=== PATIENT | female | born 1955 | race Caucasian/White ===

== ENCOUNTER 2017-02-22 16:24 | Inpatient (IN) ==
[2017-02-22 17:08] LABS: Mean Cell Volume 116.9 fL (80.0-100.0); Mean Corpuscular HGB Conc 33.4 g/dL (31.0-36.0); Platelet Count 400 K/mcL (140-440); RBC 3.52 M/mcL (4.00-5.20); Red Cell Distribution Width 16.6 % (11.5-14.5)
[2017-02-22 17:27] LABS: ALT/SGPT 16 U/l (0-40); Albumin 2.7 gm/dL (3.2-5.2); Alkaline Phosphatase 277 U/L (39-117); Blood Urea Nitrogen 5 mg/dl (8-23)
[2017-02-22 17:36] LABS: Anisocytosis 1+ (NONE SEEN); Band Neutrophils % 4 % (0-10); Eosinophils % (Manual) 1 % (0-7); Lymphocytes % 8 % (15-49); Macrocytosis 3+ (NONE SEEN); Monocytes % (Manual) 8 % (1-12); Platelet Estimate NORMAL (NORMAL); RBC Morphology ABNORM (NORMAL); Segmented Neutrophils % 79 % (38-78)
[2017-02-22] MEDS ORDERED: 0.9 % SODIUM CHLORIDE 3,000 ML IV ONE (17:37)
[2017-02-22] MEDS ORDERED: VANCOMYCIN 1,000 MG in 0.9 % SODIUM CHLORIDE 250 ML IV ONE (17:38)
[2017-02-22] MEDS ORDERED: PIPERACILLIN SODIUM/TAZOBACTAM 3.375 GM in DEXTROSE 5% IN WATER 50 ML IV SCH ×2 (17:45→18:15)
[2017-02-22] MEDS ORDERED: ONDANSETRON 4 MG/2 ML VIAL IV PRN (17:52)
[2017-02-22] MEDS ORDERED: NALOXONE HCL 0.4 MG/ML VIAL IV PRN (17:52)
[2017-02-22] MEDS: VANCOMYCIN 1,000 MG in 0.9 % SODIUM CHLORIDE 250 ML IV SCH (19:05)
[2017-02-22] MEDS: 0.9 % SODIUM CHLORIDE 1,000 ML IV SCH (19:15)
[2017-02-22] MEDS ORDERED: POTASSIUM CHLORIDE 40 MEQ in DEXTROSE 5% IN WATER 500 ML IV PRN (20:54)
[2017-02-22] MEDS ORDERED: MAGNESIUM SULFATE 2 GM/50 ML BAG IV PRN (20:54)
[2017-02-22] MEDS ORDERED: chlordiazePOXIDE 25 MG CAPSULE PO PRN (20:57)
[2017-02-22] MEDS ORDERED: POTASSIUM CHLORIDE 20 MEQ, MAGNESIUM SULFATE 16.24 MEQ, THIAMINE 100 MG, MVI, ADULT NO.... IV SCH (21:00)
--- NOTE | 2017-02-22 21:49 | Emergency Department Note ---
Skin/Abscess/FB HPI - General Chief complaint: Skin/Abscess/Foreign Body Stated complaint: Coccyx wound Time Seen by Provider: 02/22/17 17:24 Source: patient Mode of arrival: ambulatory Limitations: no limitations - History of Present Illness HPI Narrative: 61-year-old female went to see Dr. Zoraida Arora at [facility] and was found to have a sacral decubitus ulcer with eschar along with bilateral heel ulcers. Case was discussed with Dr. Conde who advised patient to go to the ER for further evaluation. She is febrile and tachycardic. she does feel sharp pain in her legs but otherwise denies sensation bilateral legs secondary to neuropathy from severe spinal stenosis. no urinary incontinence - Related Data Home Medications Medication Instructions Recorded Confirmed Acyclovir [Zovirax] 400 mg PO TID 02/28/16 02/22/17 Doxepin [Sinequan] 50 mg PO HS 02/28/16 02/22/17 Frovatriptan Succinate [Frova] 2.5 mg PO DAILYP PRN 02/28/16 02/22/17 Gabapentin [Neurontin] 800 mg PO TID 02/28/16 02/22/17 Levothyroxine [Synthroid] 137 mcg PO DAILY 02/28/16 02/22/17 Liothyronine [Cytomel] 5 mcg PO DAILY 02/28/16 02/22/17 Methocarbamol [Robaxin-750] 750 mg PO QIDP PRN 02/28/16 02/22/17 Omeprazole [Prilosec] 20 mg PO BIDAC 02/28/16 02/22/17 Potassium Chloride [Kdur] 10 meq PO QAMCC 02/28/16 02/22/17 Spironolactone [Aldactone] 25 mg PO DAILY 02/28/16 02/22/17 Sulfamethoxazole/Trimethoprim 1 tab PO DAILY 02/28/16 02/22/17 [Bactrim Ss] Verapamil [Calan Sr] 120 mg PO BID 02/28/16 02/22/17 busPIRone [Buspar] 10 mg PO BID 02/28/16 02/22/17 traMADol [Ultram] 50 mg PO TID 02/28/16 02/22/17 oxyCODONE/APAP [Percocet 5-325 mg] 1 tab PO Q6H 02/22/17 02/22/17 Allergies Allergy/AdvReac Type Severity Reaction Status Date / Time ciprofloxacin [From CIPRO] AdvReac Intermediate ABD UPSET Verified 02/22/17 19: 23 doxycycline AdvReac Mild Abdominal Verified 02/22/17 19:23 Pain nitrofurantoin AdvReac Mild Abdominal Verified 02/22/17 19:23 [From Macrobid] Pain Sulfa (Sulfonamide AdvReac Mild ABD UPSET Verified 02/22/17 19:23 Antibiotics) [SULFA (SULFONAMIDE ANTIBIOTICS)] Review of Systems All systems ED: reviewed and negative except as stated. Past Medical History - Past Medical History Attestation: Yes: The following information was validated with the patient. Medical history: Reports: hypertension, thyroid disease, other (lumbar spinal stenosis) Surgical history ED: Reports: cholecystectomy, orthopedic, other (back surgery, tibial fracture) - Social History smoking status: Current every day smoker Alcohol use: Reports: Recent (1-3 drinks per night) Physical Exam Normocephalic atraumatic injectable clear sclerae white and anicteric. No nasal discharge or congestion. Oropharynx is pink and moist. Neck is supple. No lymphadenopathy or thyromegaly. Heart is regular rate and rhythm no murmurs appreciated. Lungs are clear to auscultation bilaterally with slight end expiratory wheeze and occasional productive cough. Abdomen soft nontender nondistended. And her sacral prominence there is a 10 x 8 cm or so decubitus ulcer with black eschar present stage III. bilateral heels with stage II ulcers desquamating. Wound sites do not appear tender; seems to have lost significant sensation to lower extremities. Alert and oriented able to answer questions appropriately, no dysarthria. - General Limitations: no limitations Course Vital Signs Temperature 100.9 F H 02/22/17 16:26 Pulse Rate 102 H 02/22/17 16:26 Respiratory Rate 18 02/22/17 16:26 Blood Pressure 121/88 02/22/17 16:26 Pulse Oximetry (%) 92 02/22/17 16:26 Temperature 98.8 F 02/22/17 19:56 Pulse Rate 95 H 02/22/17 19:29 Respiratory Rate 20 02/22/17 19:56 Blood Pressure 103/72 02/22/17 19:56 Pulse Oximetry (%) 94 02/22/17 19:56 Skin/Abscess/Foreign Body - Lab Data Lab results reviewed: Yes I reviewed the patient's lab results. Result diagrams: 02/22/17 16:46 02/22/17 16:46 Lab Results 02/22/17 02/22/17 02/22/17 Range/Units 16:46 16:46 16:46 WBC 10.5 (4.5-11.0) K/mcL RBC 3.52 L (4.00-5.20) M/mcL Hgb 13.7 (12.0-15.0) g/dL Hct 41.1 (36.0-48.0) % MCV 116.9 H (80.0-100.0) fL MCH 39.0 H (26.0-34.0) pg MCHC 33.4 (31.0-36.0) g/dL RDW 16.6 H (11.5-14.5) % Plt Count 400 (140-440) K/mcL MPV 7.7 (7.4-10.4) fL Total Counted 100 Seg Neutrophils % 79 H (38-78) % Band Neutrophils % 4 (0-10) % Lymphocytes % 8 L (15-49) % Monocytes % (Manual) 8 (1-12) % Eosinophils % (Manual) 1 (0-7) % Platelet Estimate Normal (NORMAL) RBC Morphology Abnorm A (NORMAL) Polychromasia Few A (NONE SEEN) Anisocytosis 1+ A (NONE SEEN) Macrocytosis 3+ A (NONE SEEN) VBG Lactic Acid 1.1 (0.5-2.2) mmol/L Sodium 136 (133-145) mmol/L Potassium 3.8 (3.3-5.1) mmol/L Chloride 102 (96-108) mmol/L Carbon Dioxide 22 (22-30) mmol/L Anion Gap 12.0 (8-16) BUN 5 L (8-23) mg/dl Creatinine 0.6 (0.6-1.1) mg/dl GFR Calculation 97 Glucose 85 (70-105) mg/dL Calcium 8.2 L (8.6-10.4) mg/dl Total Bilirubin 0.5 (0.0-1.0) mg/dL AST 19 (0-37) U/l ALT 16 (0-40) U/l Alkaline Phosphatase 277 H (39-117) U/L Total Protein 5.5 L (5.9-8.4) gm/dL Albumin 2.7 L (3.2-5.2) gm/dL Globulin 2.8 (2.2-3.7) gm/dL Albumin/Globulin Ratio 1.0 (1.0-2.3) Disposition Clinical Impression: Sacral decubitus ulcer, stage III, Spinal stenosis, lumbar, Alcohol abuse Sepsis Qualifiers: Sepsis type: sepsis due to unspecified organism Qualified Code(s): A41.9 - Sepsis, unspecified organism Heel ulcer Qualifiers: Laterality: unspecified laterality Non-pressure ulcer stage: limited to breakdown of skin Qualified Code(s): L97.401 - Non-pressure chronic ulcer of unspecified heel and midfoot limited to breakdown of skin Neuropathy, lower extremity Qualifiers: Laterality: bilateral Qualified Code(s): G57.93 - Unspecified mononeuropathy of bilateral lower limbs Summary: Initially worked up for infected bedsore at sacral prominence- found to have fever hypotension and tachycardia. Concern for sepsis so cultures done and antibiotics started; fluid resuscitation started. Discussed with Dr. Conde, inventory specialist, and Dr. Fulton the hospitalist. Dr. Conde will consult for eschared debridement and Dr. Fulton will admit and care for sepsis. We'll need CIWA protocol secondary to alcohol usage Disposition: Xfer As Inpt ([facility]) Condition: Undetermined
[2017-02-22] MEDS: DOXEPIN 25 MG CAPSULE PO SCH (22:03)
[2017-02-22] MEDS: GABAPENTIN 400 MG CAPSULE PO SCH (22:04)
[2017-02-22] MEDS: busPIRone 10 MG TABLET PO SCH (22:04)
[2017-02-22] MEDS: LEVOTHYROXINE 25 MCG TABLET PO SCH (22:04)
[2017-02-22] MEDS: METHOCARBAMOL 750 MG TABLET PO PRN (22:04)
[2017-02-22] MEDS: LEVOTHYROXINE SODIUM 112 MCG TABLET PO SCH (22:04)
[2017-02-22] MEDS: oxyCODONE/APAP 5/325MG TABLET PO PRN (22:05)
--- NOTE | 2017-02-22 22:06 | History and Physical Report ---
DATE OF ADMISSION: 02/22/2017 PRIMARY CARE PHYSICIAN: Mario Quintanilla MD DATE OF ADMISSION: 02/22/2017 CONSULTING PHYSICIAN: Yobani Conde MD HISTORY OF CHIEF COMPLAINT: Ai is a 61-year-old with known history of spinal stenosis with paraparesis who developed bilateral heel ulceration and sacral decubitus that has progressed over the last couple of weeks into eschar. The patient was evaluated at primary care physician's office and subsequently directed to [facility] ER. Initial workup was significant for bilateral heel cellulitis with tachycardia and early sepsis along with cellulitis with discharge around the ulcer. Hospitalist Service was consulted. At the time of examination, the patient is alert and oriented. She is able to provide most of the history. Her symptoms have progressed over the last couple of weeks. She endorses weakness, fever, fatigue, lethargy. At baseline she is unable to ambulate. She lives in a trailer with her . She needs basically help with her activities of daily living. She has had progressive spinal stenosis for which she has loss of sensation in bilateral lower extremities along with motor function. She, however, denies incontinence, diarrhea, headache, photophobia, chest pain, shortness of breath, nausea, vomiting. Dr. Conde was consulted by ER physician and will consult for wound care. PAST MEDICAL HISTORY: 1. Hypertension. 2. 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 3. Chronic lower extremity wounds. 4. Hypothyroidism. 5. Asperger disease. 6. Anxiety. 7. Chronic pain. 8. Peripheral neuropathy. 9. Muscle spasm. 10. Hypothyroidism. 11. Degenerative joint disease. 12. History of migraine. SOCIAL HISTORY: The patient lives with her . 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 She has 1 daughter who lives in [place]. Denies history of IV drug use. Smokes a pack and half and consistently drinks 2-3 drinks of vodka which she has currently changed to champagne. She is a FULL CODE STATUS. Primary care physician: Mario Quintanilla MD FAMILY HISTORY: Significant for lung cancer in mother; grandfather and mother, DM type 2; aneurysmal brain hemorrhage in father. PHYSICAL EXAMINATION: GENERAL EXAMINATION: She is alert, oriented. Denies any active distress. BMI 19. Height 5 feet 8 inches. VITAL SIGNS: Blood pressure 90/77, respiratory rate 16, temperature 100.9, pulse 102, saturations 92 percent on room air. HEENT: Pupils symmetric. Oral cavity dry. No ear or nose discharge. Head: Normocephalic, atraumatic. NECK: No lymphadenopathy. CHEST: S1, S2 regular rhythm. ESM grade 1. Diminished breath sounds at bases. ABDOMEN: Soft. LOWER EXTREMITY EXAMINATION: Minimal sensation along with motor strength. Restricted dorsi- and plantarflexion. Bilateral heel ulceration along with surrounding erythema and induration and eschar. Otherwise, no joint swelling. Sacral decubitus 4 x 4 centimeter eschar. SKIN: No suspicious lesions other than as described above. PSYCHIATRIC: Alert, cooperative. No anxiety, agitation. NEURO EXAMINATION: Moving bilateral upper extremities. Lower extremities bilateral 3+ strength. Absent sensation to crude touch. LABS AND IMAGING: White count 10.5, hemoglobin 13.7, neutrophils 79 percent. Lactic acid 1.1. Sodium 133, potassium 3.8, creatinine 0.6, BUN 5. LFTs unremarkable except elevated __ at 277, total protein 5.5. ASSESSMENT AND PLAN: A 61-year-old admitted with bilateral lower extremity cellulitis. 1. Lower extremity cellulitis /sacral decubitus. Will be managed by Dr. Conde. Broad antibiotic coverage with vancomycin, Zosyn; deescalate based on culture sensitivity results. 2. Sepsis, secondary to above with tachycardia, fever. Blood cultures obtained. Broad antibiotic coverage was instituted. Cultures are pending. Continue crystalloids and hemodynamic monitoring. 3. Other prior medical issues including history of neuropathy. Continue gabapentin. 4. Chronic pain, on oxycodone, tramadol. 5. Anxiety, on BuSpar/doxepin. 6. Hypothyroidism, on thyroxine. 7. Gastroesophageal reflux disease. On proton pump inhibitors. 8. History of spinal stenosis. Continue with physical therapy. PLAN FOR TODAY: 1. Admit to inpatient telemetry in light of severe sepsis, tachycardia, hypotension. 2. Pressors if indicated. Otherwise continue severe sepsis management per guidelines. 3. Preexisting medical condition management above. 4. Wound care consult. 5. Decubitus care/offloading. AA:harsh Job ID: [id number] Doc ID: [id number] Silvestre SAUNDERS
[2017-02-22] MEDS: NICOTINE 21 MG PATCH TOPICAL SCH (22:09)
[2017-02-22] MEDS: busPIRone 5 MG TABLET PO SCH (22:09)
[2017-02-22] MEDS ORDERED: MAGNESIUM SULFATE 8.12 MEQ/2 ML VIAL ONE (22:29)
[2017-02-22] MEDS ORDERED: POTASSIUM CHLORIDE 20 MEQ/10 ML VIAL IV ONE (22:29)
[2017-02-22] MEDS: VERAPAMIL 120 MG TAB.XL.24H PO SCH (22:52)
[2017-02-22] MEDS: traMADol 50 MG TABLET PO SCH (22:52)
[2017-02-23] MEDS: PIPERACILLIN SODIUM/TAZOBACTAM 3.375 GM in DEXTROSE 5% IN WATER 50 ML IV SCH ×4 (01:11→18:57)
[2017-02-23] MEDS ORDERED: PIPERACILLIN SODIUM/TAZOBACTAM 3.375 GM VIAL IV ONE ×2 (01:12→02:48)
[2017-02-23] MEDS: oxyCODONE/APAP 5/325MG TABLET PO PRN ×5 (02:47→21:14)
[2017-02-23] MEDS: GABAPENTIN 400 MG CAPSULE PO SCH ×3 (05:21→21:13)
[2017-02-23] MEDS: 0.9 % SODIUM CHLORIDE 1,000 ML IV SCH ×2 (06:03→18:41)
[2017-02-23 06:23] LABS: Mean Corpuscular Hemoglobin 38.9 pg (26.0-34.0); Platelet Count 305 K/mcL (140-440); RBC 2.88 M/mcL (4.00-5.20); Red Cell Distribution Width 17.5 % (11.5-14.5)
[2017-02-23] MEDS: METHOCARBAMOL 750 MG TABLET PO PRN ×2 (07:13→21:13)
[2017-02-23 07:18] LABS: ALT/SGPT 13 U/l (0-40); Albumin/Globulin Ratio 0.9 (1.0-2.3); Alkaline Phosphatase 212 U/L (39-117); Bilirubin,Direct < 0.2 mg/dL (0.0-0.3); Blood Urea Nitrogen 4 mg/dl (8-23); Gamma Glutamyl Transpeptidase 73 U/L (5-36); Magnesium 1.8 mg/dL (1.6-2.5); Uric Acid 4.1 mg/dL (2.5-8.0)
[2017-02-23] MEDS ORDERED: OMEPRAZOLE 20 MG CAPSULE PO SCH ×2 (07:30)
[2017-02-23] MEDS ORDERED: POTASSIUM CHLORIDE 10 MEQ TABLET PO SCH (08:00)
[2017-02-23 08:07] LABS: Anisocytosis 1+ (NONE SEEN); Band Neutrophils % 3 % (0-10); Eosinophils % (Manual) 3 % (0-7); Lymphocytes % 22 % (15-49); Macrocytosis 3+ (NONE SEEN); Monocytes % (Manual) 2 % (1-12); Platelet Estimate NORMAL (NORMAL); RBC Morphology ABNORM (NORMAL); Segmented Neutrophils % 70 % (38-78)
[2017-02-23] MEDS ORDERED: SPIRONOLACTONE 25 MG TABLET PO SCH (09:00)
[2017-02-23] MEDS: NICOTINE 21 MG PATCH TOPICAL SCH (09:51)
[2017-02-23] MEDS: busPIRone 5 MG TABLET PO SCH ×2 (09:51→21:12)
[2017-02-23] MEDS: traMADol 50 MG TABLET PO SCH ×3 (09:51→21:13)
[2017-02-23] MEDS: SPIRONOLACTONE 25 MG TABLET PO SCH (09:52)
[2017-02-23] MEDS: VERAPAMIL 120 MG TAB.XL.24H PO SCH ×2 (09:52→21:12)
[2017-02-23] MEDS: POTASSIUM CHLORIDE 10 MEQ TABLET PO SCH (09:52)
[2017-02-23] MEDS: PANTOPRAZOLE 40 MG TABLET PO SCH ×2 (09:53→18:36)
[2017-02-23] MEDS: busPIRone 10 MG TABLET PO SCH (09:53)
--- NOTE | 2017-02-23 09:53 | Internal Med Progress Note ---
Medical - PN: Subj Patient information: Note initiated : 02/23/17 at 9:50 am Service Date, if different from initiated Date: [] Patient: Ai Baig 61 y/o F admitted on 02/22/17 for Coccyx wound. Chief Complaint: [] Interval history: 02/23- 61-year-old with history of spinal stenosis and bilateral paraparesis and sensory loss admitted with with sacral and bilateral heel decubitus ulcer along with hypotension in early sepsis. Started on broad antibiotic coverage. Wound care consulted. admitted to telemetry. 02/24 patient doing well. Stable hemodynamics and labs. Wound care consulted. Wound care ongoing per wound care physician Dr. Conde. no overnight fever chills nausea vomiting or concerns per staff. - Constitutional Vitals: Vital Signs Temp Pulse Resp BP Pulse Ox 97.8 F 90 16 104/70 97 02/23/17 04:00 02/23/17 07:59 02/23/17 07:59 02/23/17 04:00 02/23/17 04:00 Period Temp Pulse Resp BP Sys/Gonzalez Pulse Ox Last 24 Hr 97.6 F-98.8 F 90-95 16-22 82-114/61-83 92-97 Intake and Output 02/22/17 02/23/17 02/23/17 21:59 05:59 13:59 Intake Total 250 / 2300 1795 / 1795 1000 / 1000 Output Total 100 / 100 1050 / 1050 Balance 150 / 2200 745 / 745 1000 / 1000 Weight 130 lb 14.4 oz Intake & Output: Intake & Output 02/22/17 02/23/17 02/23/17 21:59 05:59 13:59 Intake Total 250 / 2300 1795 / 1795 1000 / 1000 Output Total 100 / 100 1050 / 1050 Balance 150 / 2200 745 / 745 1000 / 1000 Weight 130 lb 14.4 oz Intake: IV 250 / 250 1075 / 1075 1000 / 1000 Sodium Chloride 0.9% 1, 1000 / 1000 000 ml @ 84 mls/hr IV . [id number] [facility] Rx#:[id number] Zosyn 3.375 gm In 50 / 50 Dextrose 5% in Water 50 ml @ 100 mls/hr IV Q6H [facility] Rx#:[id number] Potassium Chloride 20 Meq 1025 / 1025 Magnesium Sulfate 16.24 Meq Vitamin B1 100 mg Infuvite Adult 10 ml In Sodium Chloride 0.9% 1, 000 ml @ As Directed IV . Q0M [facility] Rx#:[id number] Vancomycin 1,000 mg In 250 / 250 Sodium Chloride 0.9% 250 ml @ 250 mls/hr IV ONCE ONE Rx#:[id number] Oral 720 / 720 Output: Void Amount 100 / 100 1050 / 1050 General appearance: cooperative, no acute distress Exam: bilateral heel pressure ulceration with cellulitis right more pronounced than left with an eschar Sacral decubitus eschar 4 x 4 centimeter with surrounding erythema No anxiety or agitation No telemetry events-tachycardia resolved Nonlabored breathing Medical - PN: Obj Da - Labs CBC & Chem 7: 02/23/17 04:29 02/23/17 04:29 Labs: Abnormal Lab Results 02/23/17 02/23/17 04:29 04:29 RBC 2.88 L Hgb 11.2 L Hct 33.9 L MCV 118.0 H MCH 38.9 H RDW 17.5 H RBC Morphology Abnorm A Anisocytosis 1+ A Macrocytosis 3+ A Chloride 110 H Carbon Dioxide 18 L BUN 4 L Creatinine 0.4 L Calcium 6.9 L GGT 73 H Alkaline Phosphatase 212 H Lactate Dehydrogenase 360 H Total Protein 4.3 L Albumin 2.0 L Albumin/Globulin Ratio 0.9 L Meds: Medications Buspirone HCl (Buspar) 10 mg PO BID [facility] Last Admin: 02/22/17 22:04 Dose: 10 mg Buspirone HCl (Buspar) 10 mg PO BID [facility] Last Admin: 02/22/17 22:09 Dose: 10 mg Chlordiazepoxide HCl (Librium) 25 mg PO Q6HP PRN PRN Reason: Alcohol Withdrawal Doxepin HCl (Sinequan) 50 mg PO HS [facility] Last Admin: 02/22/17 22:03 Dose: 50 mg Gabapentin (Neurontin) 800 mg PO Q8 [facility] Last Admin: 02/23/17 05:21 Dose: 800 mg Sodium Chloride (Sodium Chloride 0.9%) 1,000 mls @ 84 mls/hr IV .[id number] [facility] Stop: 02/24/17 05:42 Last Admin: 02/23/17 06:03 Dose: 84 mls/hr Vancomycin HCl 1,000 mg/ (Sodium Chloride) 250 mls @ 250 mls/hr IV Q12H [facility] Last Admin: 02/22/17 19:05 Dose: Not Given Piperacillin Sod/Tazobactam (Sod 3.375 gm/ Dextrose) 50 mls @ 100 mls/hr IV Q6H [facility] Last Admin: 02/23/17 05:12 Dose: Not Given Potassium Chloride 40 meq/ (Dextrose) 520 mls @ 130 mls/hr IV UD PRN PRN Reason: K+ = or < 3.5 Magnesium Sulfate (Magnesium Sulfate) 2 gm in 50 mls @ 50 mls/hr IV UD PRN PRN Reason: Mag < or = 1.7 Potassium Chloride 20 meq/Magnesium Sulfate 16.24 meq/Thiamine HCl 100 mg/ Multivitamins/Minerals 10 ml/Sodium Chloride 1,025 mls @ 0 mls/hr IV .Q0M [facility] PRN Reason: As Directed Last Infusion: 02/23/17 02:59 Dose: Infused Levothyroxine Sodium (Synthroid) 25 mcg PO HS [facility] Last Admin: 02/22/17 22:04 Dose: 25 mcg Levothyroxine Sodium (Synthroid) 112 mcg PO HS [facility] Last Admin: 02/22/17 22:04 Dose: 112 mcg Liothyronine Sodium (Cytomel) 5 mcg PO DAILY [facility] Methocarbamol (Robaxin) 750 mg PO Q6HP PRN PRN Reason: Muscle Spasm Last Admin: 02/23/17 07:13 Dose: 750 mg Naloxone HCl (Narcan) 0.1 mg IV Q2MIN PRN PRN Reason: Opiate Reversal Nicotine (Nicoderm) 21 mg TOPICAL DAILY@1000 [facility] Last Admin: 02/22/17 22:09 Dose: Not Given Omeprazole (Prilosec) 20 mg PO ACB [facility] Ondansetron HCl (Zofran) 4 mg IV Q4HP PRN PRN Reason: Nausea And Vomiting Oxycodone/Acetaminophen (Percocet 5-325 Mg) 1 tab PO Q4HP PRN PRN Reason: Pain Last Admin: 02/23/17 07:12 Dose: 1 tab Pantoprazole Sodium (Protonix) 40 mg PO BIDAC [facility] (Frovatriptan Succinate [Frova] 2. 5 Mg 1 dose PO PRN PRN PRN Reason: Migraine Headache Potassium Chloride (Kdur) 10 meq PO QAMCC [facility] Spironolactone (Aldactone) 25 mg PO DAILY [facility] Tramadol HCl (Ultram) 50 mg PO TID [facility] Last Admin: 02/22/17 22:52 Dose: Not Given Verapamil HCl (Calan Sr) 120 mg PO BID [facility] Last Admin: 02/22/17 22:52 Dose: Not Given Medical - PN: A/P - Time Spent With Patient Total time spent is greater than 50% in coordination of care (as documented) at patient's floor/unit and/or counseling patient: 25 - 35 minutes (1) Sacral decubitus ulcer Status: Acute Assessment and plan: * infected sacral decubitus ulcer/bilateral heel pressures ulcers/cellulitis-on broad antibiotic coverage. Continue wound care. * Anxiety disorder and BuSpar * history of alcoholism no significant withdrawals. Continue chlordiazepoxide / oral alcohol as needed. * Hypertension on verapamil * Neuropathy gabapentin * chronic pain on oxycodone * hypothyroidism on thyroxine * DNR Plan * Continue wound management per wound physician * broad antibiotic coverage * Oral alcohol/monitor for withdrawal * pre-existing medical condition management as above Current Visit: Yes Medical - PN: Qual - VTE Deep Vein Thrombosis/Pulmonary Embolism Present on Admission: No
[2017-02-23] MEDS: LIOTHYRONINE 5 MCG TABLET PO SCH (10:09)
[2017-02-23] MEDS: COLLAGENASE TOP OINT TUBE 30GM TOPICAL SCH (10:41)
[2017-02-23 12:08] LABS: Prealbumin 9.9 mg/dl (20-40)
[2017-02-23 12:35] LABS: Estimated Average Glucose(eAG) 74 mg/dL; Hemoglobin A1C 4.2 % HGB (4.0-6.0)
[2017-02-23] MEDS: VANCOMYCIN 1,000 MG in 0.9 % SODIUM CHLORIDE 250 ML IV SCH ×2 (12:38→22:33)
[2017-02-23] MEDS ORDERED: SUMAtriptan SUCCINATE 50 MG TABLET PO PRN ×2 (16:30→16:38)
--- NOTE | 2017-02-23 17:50 | General Surgery Consult Note ---
History of Present Illness Patient information: Note initiated : 02/23/17 at 5:36 pm Service Date, if different from initiated Date: [] Patient: Ai Baig 61 y/o F admitted on 02/22/17 for Coccyx Wound/Bilateral Lower Extremity Cellulitis. Chief Complaint: [] Consult date: 02/23/17 (Wound Care Consult) Requesting physician: Silvestre Bond History of present illness: 61/F Admitted via ER with early sepsis syndrome. CSSSI / UTI. Noted to have Sacral and bilateral posterior heel NON STAGEABLE pressure ulcers with periwound erythema BUT without surrounding cellulitis. Patient has Spinal Stenosis and awaits Neurological Appointment with Dr. Tuttle for recommendations and referral for further management. Patient has long standing history of ETOH use, Smoking, hypothyroidism, chronic pain syndrome and sensory neuropathy of both LE and anxiety Reportedly she sits on sofa for prolonged periods of time in front of TV and smokes cigarettes. Medications and Allergies Home Medications Medication Instructions Recorded Confirmed Type Acyclovir [Zovirax] 400 mg PO TID 02/28/16 02/22/17 History Doxepin [Sinequan] 50 mg PO HS 02/28/16 02/22/17 History Gabapentin [Neurontin] 800 mg PO TID 02/28/16 02/22/17 History Levothyroxine [Synthroid] 137 mcg PO DAILY 02/28/16 02/22/17 History Liothyronine [Cytomel] 5 mcg PO DAILY 02/28/16 02/22/17 History Methocarbamol [Robaxin-750] 750 mg PO QIDP PRN 02/28/16 02/22/17 History Omeprazole [Prilosec] 20 mg PO BIDAC 02/28/16 02/22/17 History Potassium Chloride [Kdur] 10 meq PO QAMCC 02/28/16 02/22/17 History Spironolactone [Aldactone] 25 mg PO DAILY 02/28/16 02/22/17 History Sulfamethoxazole/Trimethoprim 1 tab PO DAILY 02/28/16 02/22/17 History [Bactrim Ss] Verapamil [Calan Sr] 120 mg PO BID 02/28/16 02/22/17 History busPIRone [Buspar] 10 mg PO BID 02/28/16 02/22/17 History traMADol [Ultram] 50 mg PO TID 02/28/16 02/22/17 History oxyCODONE/APAP [Percocet 5-325 mg] 1 tab PO Q6H 02/22/17 02/22/17 History SUMAtriptan SUCCINATE 100 mg PO PRN 02/23/17 History Vitamin B1 100 mg PO DAILY 02/23/17 02/23/17 History Allergies Allergy/AdvReac Type Severity Reaction Status Date / Time ciprofloxacin [From CIPRO] AdvReac Intermediate ABD UPSET Verified 02/22/17 19: 23 doxycycline AdvReac Mild Abdominal Verified 02/22/17 19:23 Pain nitrofurantoin AdvReac Mild Abdominal Verified 02/22/17 19:23 [From Macrobid] Pain Sulfa (Sulfonamide AdvReac Mild ABD UPSET Verified 02/22/17 19:23 Antibiotics) [SULFA (SULFONAMIDE ANTIBIOTICS)] Exam Temp Pulse Resp BP Pulse Ox 98.6 F 96 H 18 114/77 2 L 02/23/17 16:00 02/23/17 12:09 02/23/17 16:00 02/23/17 16:00 02/23/17 16:00 - General physical appearance well developed, no distress, chronically ill - Eyes PERRL, normal ocular movement - ENT normal pinna, normal nares, normal mucosa, no hearing loss, no congestion - Head Head exam IM: Present: atraumatic, normal inspection, normocephalic - Neck no masses, no bruits, trachea midline, no venous distension - Cardiovascular Cardiovascular exam IM: Present: normal rate and rhythm - Respiratory normal expansion, clear to auscultation - Abdomen Abdomen: Present: soft, non tender, bowel sounds - Integumentary Present: other (NON STAGEABLE pressure ulcers / Dry adherent blcak eschar with periwound erythema. NO fluctuance and no odor . Dry wounds over pressure areas sacral and bilateral posterior heels. ) - Musculoskeletal Present: normal posture, other - Psychiatric Present: oriented to time, oriented to person, oriented to place, speech is normal, memory intact Results - Labs 02/23/17 04:29 02/23/17 04:29 Abnormal lab results 02/23/17 02/23/17 02/23/17 Range/Units 04:29 04:29 10:08 RBC 2.88 L (4.00-5.20) M/mcL Hgb 11.2 L (12.0-15.0) g/dL Hct 33.9 L (36.0-48.0) % MCV 118.0 H (80.0-100.0) fL MCH 38.9 H (26.0-34.0) pg RDW 17.5 H (11.5-14.5) % RBC Morphology Abnorm A (NORMAL) Anisocytosis 1+ A (NONE SEEN) Macrocytosis 3+ A (NONE SEEN) Chloride 110 H (96-108) mmol/L Carbon Dioxide 18 L (22-30) mmol/L BUN 4 L (8-23) mg/dl Creatinine 0.4 L (0.6-1.1) mg/dl Calcium 6.9 L (8.6-10.4) mg/dl GGT 73 H (5-36) U/L Alkaline Phosphatase 212 H (39-117) U/L Lactate Dehydrogenase 360 H (94-250) U/L Total Protein 4.3 L (5.9-8.4) gm/dL Albumin 2.0 L (3.2-5.2) gm/dL Albumin/Globulin Ratio 0.9 L (1.0-2.3) Prealbumin 9.9 L (20-40) mg/dl Diabetes panel 02/23/17 02/23/17 Range/Units 04:29 10:08 Sodium 140 (133-145) mmol/L Potassium 3.7 (3.3-5.1) mmol/L Chloride 110 H (96-108) mmol/L Carbon Dioxide 18 L (22-30) mmol/L BUN 4 L (8-23) mg/dl Creatinine 0.4 L (0.6-1.1) mg/dl Glucose 74 (70-105) mg/dL Hemoglobin A1c 4.2 (4.0-6.0) % HGB Calcium 6.9 L (8.6-10.4) mg/dl AST 18 (0-37) U/l ALT 13 (0-40) U/l Alkaline Phosphatase 212 H (39-117) U/L Total Protein 4.3 L (5.9-8.4) gm/dL Albumin 2.0 L (3.2-5.2) gm/dL Triglycerides 106 (<150) mg/dl Thyroid panel 02/23/17 Range/Units 10:08 TSH 0.92 (0.27-5.01) uIU/ml Calcium panel 02/23/17 Range/Units 04:29 Calcium 6.9 L (8.6-10.4) mg/dl Phosphorus 2.7 (2.7-4.5) mg/dL Albumin 2.0 L (3.2-5.2) gm/dL Pituitary panel 02/23/17 02/23/17 Range/Units 04:29 10:08 Sodium 140 (133-145) mmol/L Potassium 3.7 (3.3-5.1) mmol/L Chloride 110 H (96-108) mmol/L Carbon Dioxide 18 L (22-30) mmol/L BUN 4 L (8-23) mg/dl Creatinine 0.4 L (0.6-1.1) mg/dl Glucose 74 (70-105) mg/dL Calcium 6.9 L (8.6-10.4) mg/dl TSH 0.92 (0.27-5.01) uIU/ml Adrenal panel 02/23/17 Range/Units 04:29 Sodium 140 (133-145) mmol/L Potassium 3.7 (3.3-5.1) mmol/L Chloride 110 H (96-108) mmol/L Carbon Dioxide 18 L (22-30) mmol/L BUN 4 L (8-23) mg/dl Creatinine 0.4 L (0.6-1.1) mg/dl Glucose 74 (70-105) mg/dL Calcium 6.9 L (8.6-10.4) mg/dl Total Bilirubin 0.3 (0.0-1.0) mg/dL AST 18 (0-37) U/l ALT 13 (0-40) U/l Alkaline Phosphatase 212 H (39-117) U/L Total Protein 4.3 L (5.9-8.4) gm/dL Albumin 2.0 L (3.2-5.2) gm/dL All other labs normal. Assessment and Plan (1) Heel ulcer Conservative management. SANTYL / Protective foam dressing and off loading Status: Chronic Priority: Medium Qualifiers: Laterality: unspecified laterality Non-pressure ulcer stage: unspecified non-pressure ulcer stage Qualified Code(s): L97.409 - Non-pressure chronic ulcer of unspecified heel and midfoot with unspecified severity (2) Sacral decubitus ulcer Santyl / Protective foam bordered dressing and off laoding. Change position q 2 hrly Status: Chronic Priority: Medium Qualifiers: Pressure ulcer stage: unstageable Qualified Code(s): L89.150 - Pressure ulcer of sacral region, unstageable (3) Spinal stenosis, lumbar Status: Chronic Priority: Medium
[2017-02-23] MEDS: LEVOTHYROXINE 25 MCG TABLET PO SCH (21:13)
[2017-02-23] MEDS: LEVOTHYROXINE SODIUM 112 MCG TABLET PO SCH (21:13)
[2017-02-23] MEDS: DOXEPIN 25 MG CAPSULE PO SCH (21:13)
[2017-02-24] MEDS: PIPERACILLIN SODIUM/TAZOBACTAM 3.375 GM in DEXTROSE 5% IN WATER 50 ML IV SCH ×5 (00:12→23:44)
[2017-02-24] MEDS: oxyCODONE/APAP 5/325MG TABLET PO PRN ×3 (01:17→19:17)
[2017-02-24] MEDS: METHOCARBAMOL 750 MG TABLET PO PRN ×3 (02:57→19:19)
[2017-02-24 05:27] LABS: Mean Cell Volume 118.3 fL (80.0-100.0); Mean Corpuscular HGB Conc 33.4 g/dL (31.0-36.0); Mean Corpuscular Hemoglobin 39.5 pg (26.0-34.0); Platelet Count 300 K/mcL (140-440); RBC 2.74 M/mcL (4.00-5.20); Red Cell Distribution Width 17.8 % (11.5-14.5)
[2017-02-24 06:10] LABS: ALT/SGPT 13 U/l (0-40); Alkaline Phosphatase 198 U/L (39-117); Bilirubin,Direct < 0.2 mg/dL (0.0-0.3); Blood Urea Nitrogen 2 mg/dl (8-23); Gamma Glutamyl Transpeptidase 71 U/L (5-36); Magnesium 1.5 mg/dL (1.6-2.5); Uric Acid 2.9 mg/dL (2.5-8.0)
--- NOTE | 2017-02-24 07:13 | XRay Report ---
CLINICAL INFORMATION: Dyspnea. Follow-up. TECHNIQUE: AP portable chest x-ray COMPARISON: 12/11/2016 and 03/21/2014 FINDINGS: Lungs are negative. No pulmonary parenchymal infiltrate or mass. Heart size and vascularity are normal. Yisel and mediastinum are negative. No pleural fluid. IMPRESSION: Negative AP chest x-ray Interpreted and Authenticated by: Reed Fitzgerald 02/24/17
[2017-02-24 08:01] LABS: Anisocytosis 1+ (NONE SEEN); Band Neutrophils % 3 % (0-10); Eosinophils % (Manual) 4 % (0-7); Lymphocytes % 22 % (15-49); Macrocytosis 3+ (NONE SEEN); Monocytes % (Manual) 3 % (1-12); Platelet Estimate NORMAL (NORMAL); RBC Morphology ABNORM (NORMAL); Segmented Neutrophils % 68 % (38-78)
[2017-02-24] MEDS: GABAPENTIN 400 MG CAPSULE PO SCH ×3 (08:57→21:10)
[2017-02-24] MEDS: traMADol 50 MG TABLET PO SCH ×3 (08:58→20:14)
[2017-02-24] MEDS: busPIRone 5 MG TABLET PO SCH ×2 (08:58→20:15)
[2017-02-24] MEDS: VERAPAMIL 120 MG TAB.XL.24H PO SCH ×2 (08:59→20:15)
[2017-02-24] MEDS: SPIRONOLACTONE 25 MG TABLET PO SCH (08:59)
[2017-02-24] MEDS: PANTOPRAZOLE 40 MG TABLET PO SCH ×2 (08:59→16:55)
[2017-02-24] MEDS: POTASSIUM CHLORIDE 10 MEQ TABLET PO SCH (08:59)
[2017-02-24] MEDS: LIOTHYRONINE 5 MCG TABLET PO SCH (09:00)
[2017-02-24] MEDS ORDERED: THIAMINE 100 MG TABLET PO SCH (09:00)
[2017-02-24] MEDS: COLLAGENASE TOP OINT TUBE 30GM TOPICAL SCH (09:01)
--- NOTE | 2017-02-24 09:44 | Internal Med Progress Note ---
Medical - PN: Subj Patient information: Note initiated : 02/24/17 at 9:42 am Service Date, if different from initiated Date: [] Patient: Ai Baig 61 y/o F admitted on 02/22/17 for Coccyx Wound/Bilateral Lower Extremity Cellulitis. Chief Complaint: [] Interval history: 02/22- 61-year-old with history of spinal stenosis and bilateral paraparesis and sensory loss admitted with with sacral and bilateral heel decubitus ulcer along with hypotension in early sepsis. Started on broad antibiotic coverage. Wound care consulted. admitted to telemetry. 02/23 patient doing well. Stable hemodynamics and labs. Wound care consulted. Wound care ongoing per wound care physician Dr. Conde. no overnight fever chills nausea vomiting or concerns per staff. 02/24- patient doing well. No overnight events. No concerns per staff. Wound care ongoing. On antibiotic coverage. Sepsis resolved. systolics at goal. Patient alert oriented and without distress. No fever chills nausea vomiting. prealbumin 9.9. Personal Injury Specialist consult - Constitutional Vitals: Vital Signs Temp Pulse Resp BP Pulse Ox 98.7 F 86 22 113/84 96 02/24/17 08:00 02/24/17 07:41 02/24/17 04:00 02/24/17 07:41 02/24/17 07:41 Period Temp Pulse Resp BP Sys/Gonzalez Pulse Ox Last 24 Hr 97.5 F-98.7 F 86-96 18-24 85-115/62-85 2-98 Intake and Output 02/23/17 02/24/17 02/24/17 21:59 05:59 13:59 Intake Total 1580 / 1580 780 / 780 1050 / 1050 Output Total 1974 950 / 950 Balance -395 / -395 -170 / -170 1050 / 1050 Weight 136 lb Intake & Output: Intake & Output 02/23/17 02/24/17 02/24/17 21:59 05:59 13:59 Intake Total 1580 / 1580 780 / 780 1050 / 1050 Output Total 1974 950 / 950 Balance -395 / -395 -170 / -170 1050 / 1050 Weight 136 lb Intake: IV 1100 / 1100 300 / 300 1050 / 1050 Sodium Chloride 0.9% 1, 1000 / 1000 1000 / 1000 000 ml @ 84 mls/hr IV . [id number] [facility] Rx#:[id number] Zosyn 3.375 gm In 100 / 100 50 / 50 50 / 50 Dextrose 5% in Water 50 ml @ 100 mls/hr IV Q6H [facility] Rx#:[id number] Vancomycin 1,000 mg In 250 / 250 Sodium Chloride 0.9% 250 ml @ 250 mls/hr IV Q12H [facility] Rx#:[id number] Oral 480 / 480 480 / 480 Output: Void Amount 1974 950 / 950 General appearance: cooperative, no acute distress Exam: lert oriented nonlabored breathing Sacral decubitus ulcer/Bilateral heel pressure ulcer/eschar No anxiety no telemetry events Medical - PN: Obj Da - Labs CBC & Chem 7: 02/24/17 04:05 02/24/17 04:05 Labs: Abnormal Lab Results 02/24/17 02/24/17 02/23/17 04:05 04:05 10:08 RBC 2.74 L Hgb 10.8 L Hct 32.4 L MCV 118.3 H MCH 39.5 H RDW 17.8 H RBC Morphology Abnorm A Anisocytosis 1+ A Macrocytosis 3+ A Chloride 111 H Carbon Dioxide 18 L BUN 2 L Creatinine 0.3 L Glucose 69 L Calcium 6.9 L Phosphorus 2.5 L Magnesium 1.5 L GGT 71 H Alkaline Phosphatase 198 H Lactate Dehydrogenase 337 H Total Protein 4.0 L Albumin 2.0 L Globulin 2.0 L Albumin/Globulin Ratio Prealbumin 9.9 L 02/23/17 02/23/17 04:29 04:29 RBC 2.88 L Hgb 11.2 L Hct 33.9 L MCV 118.0 H MCH 38.9 H RDW 17.5 H RBC Morphology Abnorm A Anisocytosis 1+ A Macrocytosis 3+ A Chloride 110 H Carbon Dioxide 18 L BUN 4 L Creatinine 0.4 L Glucose Calcium 6.9 L Phosphorus Magnesium GGT 73 H Alkaline Phosphatase 212 H Lactate Dehydrogenase 360 H Total Protein 4.3 L Albumin 2.0 L Globulin Albumin/Globulin Ratio 0.9 L Prealbumin Meds: Medications Buspirone HCl (Buspar) 10 mg PO BID [facility] Last Admin: 02/24/17 08:58 Dose: 10 mg Chlordiazepoxide HCl (Librium) 25 mg PO Q6HP PRN PRN Reason: Alcohol Withdrawal Collagenase (Santyl Top Oint) 1 dose TOPICAL DAILY [facility] Last Admin: 02/24/17 09:01 Dose: 1 dose Doxepin HCl (Sinequan) 50 mg PO HS [facility] Last Admin: 02/23/17 21:13 Dose: 50 mg Gabapentin (Neurontin) 800 mg PO Q8 [facility] Last Admin: 02/24/17 08:57 Dose: 800 mg Vancomycin HCl 1,000 mg/ (Sodium Chloride) 250 mls @ 250 mls/hr IV Q12H [facility] Last Infusion: 02/24/17 00:13 Dose: Infused Piperacillin Sod/Tazobactam (Sod 3.375 gm/ Dextrose) 50 mls @ 100 mls/hr IV Q6H [facility] Last Infusion: 02/24/17 09:02 Dose: Infused Potassium Chloride 40 meq/ (Dextrose) 520 mls @ 130 mls/hr IV UD PRN PRN Reason: K+ = or < 3.5 Magnesium Sulfate (Magnesium Sulfate) 2 gm in 50 mls @ 50 mls/hr IV UD PRN PRN Reason: Mag < or = 1.7 Levothyroxine Sodium (Synthroid) 25 mcg PO [facility] Last Admin: 02/23/17 21:13 Dose: 25 mcg Levothyroxine Sodium (Synthroid) 112 mcg PO [facility] Last Admin: 02/23/17 21:13 Dose: 112 mcg Liothyronine Sodium (Cytomel) 5 mcg PO DAILY [facility] Last Admin: 02/24/17 09:00 Dose: 5 mcg Methocarbamol (Robaxin) 750 mg PO Q6HP PRN PRN Reason: Muscle Spasm Last Admin: 02/24/17 04:54 Dose: 750 mg Naloxone HCl (Narcan) 0.1 mg IV Q2MIN PRN PRN Reason: Opiate Reversal Nicotine (Nicoderm) 21 mg TOPICAL DAILY@1000 [facility] Last Admin: 02/23/17 09:51 Dose: 21 mg Ondansetron HCl (Zofran) 4 mg IV Q4HP PRN PRN Reason: Nausea And Vomiting Oxycodone/Acetaminophen (Percocet 5-325 Mg) 1 tab PO Q4HP PRN PRN Reason: Pain Last Admin: 02/24/17 04:54 Dose: 1 tab Pantoprazole Sodium (Protonix) 40 mg PO BIDAC [facility] Last Admin: 02/24/17 08:59 Dose: 40 mg Potassium Chloride (Kdur) 10 meq PO QAMCC [facility] Last Admin: 02/24/17 08:59 Dose: 10 meq Spironolactone (Aldactone) 25 mg PO DAILY [facility] Last Admin: 02/24/17 08:59 Dose: 25 mg Sumatriptan Succinate (Imitrex) 100 mg PO DAILYP PRN PRN Reason: Migraine Headache Thiamine HCl (Vitamin B1) 100 mg PO DAILY [facility] Last Admin: 02/24/17 08:59 Dose: 100 mg Tramadol HCl (Ultram) 50 mg PO TID [facility] Last Admin: 02/24/17 08:58 Dose: 50 mg Verapamil HCl (Calan Sr) 120 mg PO BID [facility] Last Admin: 02/24/17 08:59 Dose: 120 mg Medical - PN: A/P - Time Spent With Patient Total time spent is greater than 50% in coordination of care (as documented) at patient's floor/unit and/or counseling patient: 15 - 24 minutes (1) Sacral decubitus ulcer Status: Chronic Assessment and plan: * Infected sacral decubitus ulcer/bilateral heel pressures ulcers/cellulitis- Clinical improvement noted on broad antibiotic coverage. wound management per Dr. Conde * Anxiety disorder and BuSpar * history of alcoholism -no signs of withdrawals. Continue as needed chlordiazepoxide /oral alcohol * Hypertension on verapamil * Neuropathy gabapentin * chronic pain on oxycodone * hypothyroidism on thyroxine * DNR Plan * Continue wound management per wound physician * transfer to medical floor * continue antibiotic coverage * pre-existing medical condition management as above * case management to arrange SNF transfer for outpatient antibiotics/wound management and rehabilitation Current Visit: Yes Medical - PN: Qual - VTE Deep Vein Thrombosis/Pulmonary Embolism Present on Admission: No
[2017-02-24] MEDS: NICOTINE 21 MG PATCH TOPICAL SCH (11:06)
[2017-02-24] MEDS ORDERED: chlordiazePOXIDE 25 MG CAPSULE PO PRN (11:34)
[2017-02-24] MEDS ORDERED: SUMAtriptan SUCCINATE 50 MG TABLET PO PRN (11:34)
[2017-02-24] MEDS ORDERED: ONDANSETRON 4 MG/2 ML VIAL IV PRN (11:34)
[2017-02-24] MEDS ORDERED: MAGNESIUM SULFATE 2 GM/50 ML BAG IV PRN (11:34)
[2017-02-24] MEDS ORDERED: POTASSIUM CHLORIDE 40 MEQ in DEXTROSE 5% IN WATER 500 ML IV PRN (11:34)
[2017-02-24] MEDS ORDERED: NALOXONE HCL 0.4 MG/ML VIAL IV PRN (11:34)
--- NOTE | 2017-02-24 11:59 | General Surgery Progress Note ---
Subjective Patient reports: other (No interval changes. Patient seen and progress reviewed with Tran CHAVARRIA) Narrative: Note initiated : 02/24/17 at 11:56 am Service Date, if different from initiated Date: [] Patient: Ai Baig 61 y/o F admitted on 02/22/17 for Coccyx Wound/Bilateral Lower Extremity Cellulitis. Chief Complaint: [] Objective Temp Pulse Resp BP Pulse Ox 98.7 F 86 20 111/70 100 02/24/17 11:46 02/24/17 07:41 02/24/17 11:46 02/24/17 11:46 02/24/17 11:46 AVSS. No changes in clinical examination. PREALBUMIN 9. Local wound care with SANTYL , foam dressing and off loading is ongoing. - Additional Data Intake & Output - Last 24 hours: Intake & Output 02/22/17 02/23/17 02/24/17 02/25/17 05:59 05:59 05:59 05:59 Intake Total 2045 / 4095 3610 / 3610 1170 / 1170 Output Total 1150 / 1150 3125 / 3125 550 / 550 Balance 895 / 2945 485 / 485 620 / 620 Weight 130 lb 14.4 oz 136 lb - Labs 02/24/17 04:05 02/24/17 04:05 Diabetes panel 02/23/17 02/24/17 Range/Units 10:08 04:05 Sodium 140 (133-145) mmol/L Potassium 3.3 (3.3-5.1) mmol/L Chloride 111 H (96-108) mmol/L Carbon Dioxide 18 L (22-30) mmol/L BUN 2 L (8-23) mg/dl Creatinine 0.3 L (0.6-1.1) mg/dl Glucose 69 L (70-105) mg/dL Hemoglobin A1c 4.2 (4.0-6.0) % HGB Calcium 6.9 L (8.6-10.4) mg/dl AST 23 (0-37) U/l ALT 13 (0-40) U/l Alkaline Phosphatase 198 H (39-117) U/L Total Protein 4.0 L (5.9-8.4) gm/dL Albumin 2.0 L (3.2-5.2) gm/dL Triglycerides 112 (<150) mg/dl Thyroid panel 02/23/17 Range/Units 10:08 TSH 0.92 (0.27-5.01) uIU/ml Calcium panel 02/24/17 Range/Units 04:05 Calcium 6.9 L (8.6-10.4) mg/dl Phosphorus 2.5 L (2.7-4.5) mg/dL Albumin 2.0 L (3.2-5.2) gm/dL Pituitary panel 02/23/17 02/24/17 Range/Units 10:08 04:05 Sodium 140 (133-145) mmol/L Potassium 3.3 (3.3-5.1) mmol/L Chloride 111 H (96-108) mmol/L Carbon Dioxide 18 L (22-30) mmol/L BUN 2 L (8-23) mg/dl Creatinine 0.3 L (0.6-1.1) mg/dl Glucose 69 L (70-105) mg/dL Calcium 6.9 L (8.6-10.4) mg/dl TSH 0.92 (0.27-5.01) uIU/ml Adrenal panel 02/24/17 Range/Units 04:05 Sodium 140 (133-145) mmol/L Potassium 3.3 (3.3-5.1) mmol/L Chloride 111 H (96-108) mmol/L Carbon Dioxide 18 L (22-30) mmol/L BUN 2 L (8-23) mg/dl Creatinine 0.3 L (0.6-1.1) mg/dl Glucose 69 L (70-105) mg/dL Calcium 6.9 L (8.6-10.4) mg/dl Total Bilirubin 0.3 (0.0-1.0) mg/dL AST 23 (0-37) U/l ALT 13 (0-40) U/l Alkaline Phosphatase 198 H (39-117) U/L Total Protein 4.0 L (5.9-8.4) gm/dL Albumin 2.0 L (3.2-5.2) gm/dL Assessment and Plan (1) Heel ulcer Status: Chronic Current Visit: Yes (2) Sacral decubitus ulcer Status: Chronic Current Visit: Yes (3) Spinal stenosis, lumbar Status: Chronic Current Visit: Yes - Narrative A/P Narrative: Assessment : Wound Care: Pressure ulcers SACRAL, posterior heels bilateral. / Malnutrition PREALBUMIN 9 Plan : Continue ongoing wound care. Start OXANDRIN 10 mg PO daily for 15 days. AGREE with Nutrition Consult. [employer] patient for smoking cessation and abstinence from alcohol. - Time Spent With Patient Total time spent is greater than 50% in coordination of care (as documented) at patient's floor/unit and/or counseling patient:
[2017-02-24] MEDS: VANCOMYCIN 1,000 MG in 0.9 % SODIUM CHLORIDE 250 ML IV SCH ×2 (15:11→16:16)
[2017-02-24] MEDS: OXANDROLONE 2.5 MG TABLET PO SCH (20:15)
[2017-02-24] MEDS ORDERED: LEVOTHYROXINE SODIUM 112 MCG TABLET PO SCH (21:00)
[2017-02-24] MEDS ORDERED: LEVOTHYROXINE 25 MCG TABLET PO SCH (21:00)
[2017-02-24] MEDS ORDERED: DOXEPIN 25 MG CAPSULE PO SCH (21:00)
[2017-02-25] MEDS: METHOCARBAMOL 750 MG TABLET PO PRN ×2 (04:55→11:18)
[2017-02-25] MEDS: oxyCODONE/APAP 5/325MG TABLET PO PRN ×2 (04:55→11:18)
[2017-02-25] MEDS: GABAPENTIN 400 MG CAPSULE PO SCH (05:43)
[2017-02-25] MEDS: PIPERACILLIN SODIUM/TAZOBACTAM 3.375 GM in DEXTROSE 5% IN WATER 50 ML IV SCH ×2 (05:43→11:18)
[2017-02-25 06:19] LABS: Mean Corpuscular HGB Conc 33.6 g/dL (31.0-36.0); Mean Corpuscular Hemoglobin 39.6 pg (26.0-34.0); Platelet Count 308 K/mcL (140-440); RBC 2.87 M/mcL (4.00-5.20); Red Cell Distribution Width 17.1 % (11.5-14.5)
[2017-02-25 07:07] LABS: ALT/SGPT 14 U/l (0-40); Albumin 2.1 gm/dL (3.2-5.2); Albumin/Globulin Ratio 0.9 (1.0-2.3); Alkaline Phosphatase 203 U/L (39-117); Bilirubin,Direct < 0.2 mg/dL (0.0-0.3); Blood Urea Nitrogen 2 mg/dl (8-23); Gamma Glutamyl Transpeptidase 76 U/L (5-36); Magnesium 1.3 mg/dL (1.6-2.5); Uric Acid 2.5 mg/dL (2.5-8.0)
[2017-02-25] MEDS: PANTOPRAZOLE 40 MG TABLET PO SCH (07:21)
[2017-02-25] MEDS ORDERED: POTASSIUM CHLORIDE 10 MEQ TABLET PO SCH (08:00)
[2017-02-25] MEDS ORDERED: LIOTHYRONINE 5 MCG TABLET PO SCH (09:00)
[2017-02-25] MEDS ORDERED: THIAMINE 100 MG TABLET PO SCH (09:00)
[2017-02-25] MEDS ORDERED: SPIRONOLACTONE 25 MG TABLET PO SCH (09:00)
[2017-02-25] MEDS ORDERED: COLLAGENASE TOP OINT TUBE 30GM TOPICAL SCH (09:00)
[2017-02-25 09:17] LABS: Anisocytosis 1+ (NONE SEEN); Eosinophils % (Manual) 5 % (0-7); Lymphocytes % 20 % (15-49); Macrocytosis 3+ (NONE SEEN); Monocytes % (Manual) 4 % (1-12); Platelet Estimate NORMAL (NORMAL); RBC Morphology ABNORM (NORMAL); Segmented Neutrophils % 71 % (38-78)
[2017-02-25] MEDS: VERAPAMIL 120 MG TAB.XL.24H PO SCH (09:23)
[2017-02-25] MEDS: busPIRone 5 MG TABLET PO SCH (09:23)
[2017-02-25] MEDS: traMADol 50 MG TABLET PO SCH (09:27)
[2017-02-25] MEDS ORDERED: NICOTINE 21 MG PATCH TOPICAL SCH (10:00)
--- NOTE | 2017-02-25 11:21 | Discharge Summary ---
Medical - DS: Prov Patient information: Note initiated : 02/25/17 at 11:17 am Service Date, if different from initiated Date: [] Patient: Ai Baig 61 y/o F admitted on 02/22/17 for Coccyx Wound/Bilateral Lower Extremity Cellulitis. Chief Complaint: [] Date of admission: 02/22/17 19:13 Discharge date: 02/25/17 Primary care physician: [f_Reg Prim Care Provider] Consults: 02/23/17 09:40 Consult to Physician [CONS] Routine Comment: wounds Consulting Provider: Yobani Conde Reason For Exam: Physician to Consult 02/24/17 12:50 Consult to Physician [CONS] Routine Comment: Consulting Provider: [facility] Reason For Exam: Physician to Consult Medical - DS: Meds - Discharge Medications Prescriptions: Vancomycin 1,000 mg IV Q24H #10 vial cefTRIAXone SODIUM [Ceftriaxone] 2 gm IV DAILY #10 vial.port Active and Home Medications: Home Medications Acyclovir [Zovirax] 400 mg PO TID 02/28/16 [History Confirmed 02/22/17 Last Taken Unknown] Doxepin [Sinequan] 50 mg PO HS 02/28/16 [History Confirmed 02/22/17 Last Taken Unknown] Gabapentin [Neurontin] 800 mg PO TID 02/28/16 [History Confirmed 02/22/17 Last Taken Unknown] Levothyroxine [Synthroid] 137 mcg PO DAILY 02/28/16 [History Confirmed 02/22/17 Last Taken Unknown] Liothyronine [Cytomel] 5 mcg PO DAILY 02/28/16 [History Confirmed 02/22/17 Last Taken Unknown] Methocarbamol [Robaxin-750] 750 mg PO QIDP PRN 02/28/16 [History Confirmed 02/22 Last Taken Unknown] Omeprazole [Prilosec] 20 mg PO BIDAC 02/28/16 [History Confirmed 02/22/17 Last Taken Unknown] Potassium Chloride [Kdur] 10 meq PO QAMCC 02/28/16 [History Confirmed 02/22/17 Last Taken Unknown] Spironolactone [Aldactone] 25 mg PO DAILY 02/28/16 [History Confirmed 02/22/17 Last Taken Unknown] Sulfamethoxazole/Trimethoprim [Bactrim Ss] 1 tab PO DAILY 02/28/16 [History Confirmed 02/22/17 Last Taken Unknown] Verapamil [Calan Sr] 120 mg PO BID 02/28/16 [History Confirmed 02/22/17 Last Taken Unknown] busPIRone [Buspar] 10 mg PO BID 02/28/16 [History Confirmed 02/22/17 Last Taken Unknown] traMADol [Ultram] 50 mg PO TID 02/28/16 [History Confirmed 02/22/17 Last Taken Unknown] oxyCODONE/APAP [Percocet 5-325 mg] 1 tab PO Q6H 02/22/17 [History Confirmed Last Taken Unknown] SUMAtriptan SUCCINATE 100 mg PO PRN 02/23/17 [History Last Taken Unknown] Vitamin B1 100 mg PO DAILY 02/23/17 [History Confirmed 02/23/17 Last Taken Unknown] Vancomycin 1,000 mg IV Q24H #10 vial 02/25/17 [Rx Last Taken Unknown] cefTRIAXone SODIUM [Ceftriaxone] 2 gm IV DAILY #10 vial.port 02/25/17 [Rx Last Taken Unknown] Medical - DS: Hosp Hospital course: Discharge diagnosis * Infected sacral decubitus ulcer/bilateral heel pressures ulcers/cellulitis- Clinical improvement noted on broad antibiotic coverage nd continued wound management by Dr. Conde. Continue vancomycin/Rocephin for additional 10 days along with wound care instructions as per Dr. Conde. Transfer to SNF * Anxiety disorder well-controlled on BuSpar * history of alcoholism -no signs of withdrawals. * tobacco dependence- counseled for tobacco cessation * history of spinal stenosis with paraparesis and chronic bedridden state leading to pressure sores. Continue physical therapy * Hypertension on verapamil * Neuropathy gabapentin * chronic pain on oxycodone * hypothyroidism on thyroxine [facility] Mr. Baig is a 61 year old female 02/22- 61-year-old with history of spinal stenosis and bilateral paraparesis and sensory loss admitted with with sacral and bilateral heel decubitus ulcer along with hypotension in early sepsis. Started on broad antibiotic coverage. Wound care consulted. admitted to telemetry. 02/23 patient doing well. Stable hemodynamics and labs. Wound care consulted. Wound care ongoing per wound care physician Dr. Conde. no overnight fever chills nausea vomiting or concerns per staff. 02/24- patient doing well. No overnight events. No concerns per staff. Wound care ongoing. On antibiotic coverage. Sepsis resolved. systolics at goal. Patient alert oriented and without distress. No fever chills nausea vomiting. prealbumin 9.9. Medical Insurance Claims Specialist consult 02/25-atient doing well. Transferring to SNF. Continue antibiotics for additional 10 days and wound care instructions per Dr. gayle along with outpatient follow-ups. Discharge diagnosis: . - Time Spent with Patient Total time spent providing and/or coordinating discharge services: Greater than 30 minutes Medical - DS: Exam - Constitutional Vitals: Vital Signs Temp Pulse Pulse Resp BP BP BP 02/25/17 08:00 97.7 F 18 105/67 02/25/17 07:40 85 02/25/17 03:53 97.7 F 87 20 106/67 02/24/17 23:57 98.4 F 89 22 97/61 02/24/17 19:54 98.1 F 93 H 22 104/70 02/24/17 15:26 98.3 F 20 122/65 02/24/17 11:46 98.7 F 20 111/70 02/24/17 11:42 111/70 02/24/17 11:41 89 Pulse Ox 02/25/17 08:00 92 02/25/17 07:40 92 02/25/17 03:53 91 02/24/17 23:57 91 02/24/17 19:54 94 02/24/17 15:26 99 02/24/17 11:46 100 02/24/17 11:42 02/24/17 11:41 100 Intake and Output 02/24/17 02/25/17 02/25/17 21:59 05:59 13:59 Intake Total 420 / 420 550 / 550 110 / 110 Output Total 500 / 500 Balance -80 / -80 550 / 550 110 / 110 Intake: IV 300 / 300 50 / 50 Zosyn 3.375 gm In 50 / 50 50 / 50 Dextrose 5% in Water 50 ml @ 100 mls/hr IV Q6H [facility] Rx#:[id number] Vancomycin 1,000 mg In 250 / 250 Sodium Chloride 0.9% 250 ml @ 250 mls/hr IV Q24H [facility] Rx#:[id number] Oral 120 / 120 500 / 500 110 / 110 Output: Void Amount 500 / 500 Other: Meal Dinner Breakfast Percent of Meal Consumed 50% 75% Feeding Ability Independent # Voids 1 1 1 # Bowel Movements 1 1 1 Weight 137 lb 8 oz Medical - DS: Data Labs on day of discharge: Labs from last 24 hours 02/25/17 02/25/17 05:14 05:14 WBC 7.2 RBC 2.87 L Hgb 11.4 L Hct 33.9 L MCV 118.0 H MCH 39.6 H MCHC 33.6 RDW 17.1 H Plt Count 308 MPV 7.6 Total Counted 100 Seg Neutrophils % 71 Band Neutrophils % Not Reportable Lymphocytes % 20 Monocytes % (Manual) 4 Eosinophils % (Manual) 5 Platelet Estimate Normal RBC Morphology Abnorm A Anisocytosis 1+ A Macrocytosis 3+ A Sodium 143 Potassium 3.1 L Chloride 110 H Carbon Dioxide 18 L Anion Gap 15.0 BUN 2 L Creatinine 0.4 L GFR Calculation 111 Glucose 72 Uric Acid 2.5 Calcium 7.5 L Phosphorus 2.9 Magnesium 1.3 L Total Bilirubin 0.4 Direct Bilirubin < 0.2 GGT 76 H AST 19 ALT 14 Alkaline Phosphatase 203 H Lactate Dehydrogenase 357 H Total Protein 4.4 L Albumin 2.1 L Globulin 2.3 Albumin/Globulin Ratio 0.9 L Triglycerides 130 Medical - DS: A/P - Patient/Caregiver Discharge Instructions Activity: as per physical therapy, as instructed (care recommendations) Diet: Regular Diet Additional Instructions: Follow-up PCP in 5 days continue wound care recommendations per Dr. Conde along with follow-up instructions I recommend SNF physician to check CBC BMP UA as a posthospital follow-up Antibiotics for additional 10 days IV Rocephin/vancomycin nutritional consult for high-protein calorie diet Please schedule pulmonary function test as outpatient in 3 weeks Continue aggressive bowel regimen to prevent constipation Continue fall precautionn Continue aggressive PT OT at [facility] All meals on chair sitting upright at 90 degrees to prevent aspiration Return to ER if worsening fever chills shortness of breath, diarrhea, bleeding Review risk and side effect profile of medications including antibiotics. Side effect may include mild to severe reaction including rash, diarrhea, cdiff and even which can be prevented by close follow-up with PCP and monitoring for side effects Refrain from smoking and alcohol Continue high-protein calorie diet and activity as advised Discussed importance of medication adherence Please review medication list with patient prior to discharge Please schedule follow-up with PCP/Providers prior to discharge and provide printouts Portions of this chart may have been created with [employer] voice recognition software. Occasional wrong-word or ?sound-like? substitutions may have occurred due to the inherent limitations of voice recognition software. Please read the chart carefully and recognize, using context, where the substitutions have occurred. CC- PCP Prescriptions: Vancomycin 1,000 mg IV Q24H #10 vial cefTRIAXone SODIUM [Ceftriaxone] 2 gm IV DAILY #10 vial.port Other Amb Orders: Wound Care Instructions Location: Determined By Patient - Problem Maintenance (1) Sacral decubitus ulcer Status: Chronic Qualifiers: Pressure ulcer stage: unstageable Qualified Code(s): L89.150 - Pressure ulcer of sacral region, unstageable - Follow up Plan Follow up with: Mario Quintanilla MD [Primary Care Provider] - Disposition: Xfer SNF Prognosis: Undetermined Rehab Potential: Undetermined I certify that the patient requires SNF services: Yes Overall status at discharge: patient is progressing back to baseline Medical - DS: Qual - VTE Deep Vein Thrombosis/Pulmonary Embolism Present on Admission: No
[2017-02-25] MEDS: OXANDROLONE 2.5 MG TABLET PO SCH (11:28)
[2017-02-25] MEDS: VANCOMYCIN 1,000 MG in 0.9 % SODIUM CHLORIDE 250 ML IV SCH (12:12)
== END 2017-02-25 13:35 | DRG 871 ==
LOC: ED 16:24 → ICU 19:13 → MEDSUR 02-24 13:15
PROVIDERS: ADMIT Internal Medicine; ATTEND Internal Medicine